=== PATIENT | female | born 1995 | race Caucasian/White ===

== ENCOUNTER → 2020-01-28 | Outpatient (REF) | payer OTHER, MEDICAID ==
[2020-01-28 12:39] LABS: BASO # 0.1 10^3/uL (0.0-0.2); BASO % 1.1 % (0.0-1.0); EOS # 0.1 10^3/uL (0.0-0.5); EOS % 2.1 % (0.0-3.0); HEMATOCRIT 41.2 % (36.0-47.0); HEMOGLOBIN 13.2 g/dl (12.0-15.5); LYMPH # 1.9 10^3/uL (1.5-5.0); LYMPH % 35.4 % (24.0-44.0); MEAN CORPUSCULAR HEMOGLOBIN 27.8 pg (27.0-33.0); MEAN CORPUSCULAR VOLUME 86.9 fl (80.0-96.0); MONO # 0.5 10^3/uL (0.0-0.8); MONO % 8.6 % (0.0-5.0); NEUTROPHILS # 2.8 10^3/uL (1.5-8.5); NEUTROPHILS % 52.6 % (36.0-66.0); PLATELET COUNT, AUTOMATED 290 10^3/uL (150-450); RED BLOOD COUNT 4.74 10^6/uL (4.00-5.40); WHITE BLOOD COUNT 5.3 10^3/uL (4.0-10.0)
[2020-01-28 13:24] LABS: ERYTHROCYTE SEDIMENTATION RATE 22 mm/hr (0-20)
[2020-01-29 13:07] LABS: IgG P18 AB Absent (.); IgG P23 AB Absent (.); IgG P28 AB Absent (.); IgG P30 AB Absent (.); IgG P39 AB Absent (.); IgG P41 AB Present (.); IgG P45 AB Absent (.); IgG P66 AB Absent (.); IgG P93 AB Absent (.); IgM P23 AB Absent (.); IgM P39 AB Absent (.); IgM P41 AB Absent (.); LYME IgG WB INTERPRETATION Negative (.); LYME IgM WB INTERPRETATION Negative (.)
== END ==
LOC: M SFHCRHEU 09:16
PROVIDERS: ATTEND Internal Medicine
DX: R76.8 Other specified abnormal immunological findings in serum (principal); R70.0 Elevated erythrocyte sedimentation rate

== ENCOUNTER 2021-04-16 22:03 | Emergency (ER) | payer OTHER, MEDICAID ==
[~2021-04-16] VITALS: Ht 162.6 cm; Wt 77.3 kg
[2021-04-17] MEDS ORDERED: KETOROLAC 60MG 2ML VIAL IM ONE
[2021-04-17 00:21] LABS: RSV AMPLIFICATION NEGATIVE (NEGATIVE)
[2021-04-17] MEDS ORDERED: KETOROLAC TROMETHAMINE 10 MG TAB PO ONE (00:50)
--- NOTE | 2021-04-17 00:55 | REPVR ---
PROCEDURE INFORMATION: Exam: XR Chest Exam date and time: 04/17/2021 12:40 AM Age: 25 years old Clinical indication: Shortness of breath; Additional info: SOB TECHNIQUE: Imaging protocol: XR of the chest. Views: 2 views. COMPARISON: No relevant prior studies available. FINDINGS: Lungs: Unremarkable. No consolidation. Pleural spaces: Unremarkable. No pleural effusion. No pneumothorax. Heart/Mediastinum: Unremarkable. No cardiomegaly. Bones/joints: Unremarkable. IMPRESSION: Negative chest. Electronically signed by: Garett Petty On 04/17/2021 00:55:23 AM
[2021-04-17 00:56] VITALS: BP 141/80
== END 2021-04-17 02:54 | disposition home or self-care (01) ==
LOC: M ED 22:03
DX: M54.6 Pain in thoracic spine (principal); R10.9 Unspecified abdominal pain; B34.8 Other viral infections of unspecified site

== ENCOUNTER → 2023-01-31 | Outpatient (CLI) | payer OTHER, MEDICAID | LOC: M WUC 11:29 | PROVIDERS: ATTEND Physician Assistant | DX: J32.9 Chronic sinusitis, unspecified (principal) ==

== ENCOUNTER 2023-02-02 12:53 | Emergency (ER) | payer MEDICAID, OTHER ==
[~2023-02-02] VITALS: Ht 162.6 cm; Wt 80.9 kg
[2023-02-02] MEDS ORDERED: AMOX875T2 (13:09)
[2023-02-02] MEDS ORDERED: NS 1,000 ML IV ONE (13:55)
[2023-02-02 14:09] LABS: BASO # 0.1 10^3/uL (0.0-0.2); BASO % 0.7 % (0.0-1.0); EOS # 0.1 10^3/uL (0.0-0.5); HEMOGLOBIN 14.3 g/dl (12.0-15.5); LYMPH # 2.2 10^3/uL (1.5-5.0); LYMPH % 24.9 % (24.0-44.0); MEAN CORPUSCULAR HEMOGLOBIN 28.1 pg (27.0-33.0); MEAN CORPUSCULAR HGB CONC 33.3 g/dl (32.0-36.5); MEAN CORPUSCULAR VOLUME 84.6 fl (80.0-96.0); MONO # 0.5 10^3/uL (0.0-0.8); MONO % 5.5 % (2.0-8.0); NEUTROPHILS % 67.7 % (36.0-66.0); PLATELET COUNT, AUTOMATED 326 10^3/uL (150-450); RED BLOOD COUNT 5.08 10^6/uL (4.00-5.40); WHITE BLOOD COUNT 8.8 10^3/uL (4.0-10.0)
[2023-02-02 16:32] VITALS: BP 133/84; TEMP 98.9; O2SAT 96
== END 2023-02-02 16:33 | disposition home or self-care (01) ==
LOC: M ED 12:53
DX: R55 Syncope and collapse (principal); J01.90 Acute sinusitis, unspecified; R09.82 Postnasal drip

== ENCOUNTER 2023-02-07 18:37 | Emergency (ER) | payer OTHER ==
[~2023-02-07] VITALS: Ht 162.6 cm; Wt 80.5 kg
[~2023-02-07 18:37] MED LIST: AMOX875T2
[2023-02-07 18:38] VITALS: TEMP 97.8
[2023-02-07] MEDS ORDERED: LORazepam 2 MG/ML 1ML VIAL IV STA (20:47)
[2023-02-07] MEDS ORDERED: NS 1,000 ML IV ONE (20:50)
[2023-02-07] MEDS ORDERED: MECLIZINE 25 MG TABLET PO ONE (20:50)
[2023-02-07 21:19] LABS: BASO # 0.1 10^3/uL (0.0-0.2); BASO % 0.5 % (0.0-1.0); EOS # 0.1 10^3/uL (0.0-0.5); EOS % 0.5 % (0.0-3.0); HEMATOCRIT 43.7 % (36.0-47.0); HEMOGLOBIN 14.4 g/dl (12.0-15.5); LYMPH # 2.7 10^3/uL (1.5-5.0); LYMPH % 25.8 % (24.0-44.0); MEAN CORPUSCULAR HEMOGLOBIN 27.9 pg (27.0-33.0); MEAN CORPUSCULAR VOLUME 84.5 fl (80.0-96.0); MONO # 0.6 10^3/uL (0.0-0.8); NEUTROPHILS # 7.1 10^3/uL (1.5-8.5); PLATELET COUNT, AUTOMATED 338 10^3/uL (150-450); RED BLOOD COUNT 5.17 10^6/uL (4.00-5.40); WHITE BLOOD COUNT 10.6 10^3/uL (4.0-10.0)
[2023-02-07] MEDS ORDERED: CLAR1TAB13 PO (21:31)
[2023-02-07 21:50] LABS: BLOOD UREA NITROGEN 8 MG/DL (9-23); CALCIUM LEVEL 9.6 MG/DL (8.5-10.1); CARBON DIOXIDE LEVEL 25 MMOL/L (20-31); CHLORIDE LEVEL 107 MMOL/L (98-107); CREATININE FOR GFR 0.58 MG/DL (0.55-1.30); GLOMERULAR FILTRATION RATE > 60.0 (>60); GLUCOSE, FASTING 92 MG/DL (60-100); POTASSIUM SERUM 3.9 MMOL/L (3.5-5.1); SODIUM LEVEL 142 MMOL/L (136-145)
[2023-02-07 21:52] VITALS: BP 125/83; O2SAT 99
[2023-02-07] MEDS ORDERED: MECL-209 PO (22:45)
[2023-02-07] MEDS ORDERED: FLON1SPR NARES (22:45)
== END 2023-02-07 23:01 | disposition home or self-care (01) ==
LOC: M ED 18:37
DX: R42 Dizziness and giddiness (principal); R20.2 Paresthesia of skin
CPT/HCPCS: 80048; 85025; 87486; 87581; 87633; 87798; 96360; 96374; 99284; J2060

== ENCOUNTER → 2023-08-01 | Outpatient (CLI) | payer OTHER ==
[~2023-08-01] MED LIST changes: +CLAR1TAB13 PO; +FLON1SPR NARES; +MECL-209 PO
[2023-08-01 19:49] LABS: BASO # 0.1 10^3/uL (0.0-0.2); BASO % 0.8 % (0.0-1.0); EOS # 0.1 10^3/uL (0.0-0.5); EOS % 1.4 % (0.0-3.0); LYMPH # 2.6 10^3/uL (1.5-5.0); LYMPH % 34.1 % (24.0-44.0); MEAN CORPUSCULAR HGB CONC 32.5 g/dl (32.0-36.5); MEAN CORPUSCULAR VOLUME 86.2 fl (80.0-96.0); MONO # 0.5 10^3/uL (0.0-0.8); MONO % 6.2 % (2.0-8.0); NEUTROPHILS # 4.5 10^3/uL (1.5-8.5); NEUTROPHILS % 57.4 % (36.0-66.0); PLATELET COUNT, AUTOMATED 267 10^3/uL (150-450); RED BLOOD COUNT 4.64 10^6/uL (4.00-5.40)
[2023-08-01 19:55] LABS: C REACTIVE PROTEIN QUANTITATIV < 0.40 MG/DL (<1.0)
[2023-08-01 19:56] LABS: ALBUMIN 3.8 G/DL (3.2-5.2); ALKALINE PHOSPHATASE 67 U/L (46-116); ALT/SGPT 11 U/L (7.0-40); AST/SGOT 9 U/L (<34); BILIRUBIN,TOTAL 0.3 MG/DL (0.3-1.2); BLOOD UREA NITROGEN 15 MG/DL (9-23); CALCIUM LEVEL 8.8 MG/DL (8.5-10.1); CARBON DIOXIDE LEVEL 26 MMOL/L (20-31); CHLORIDE LEVEL 109 MMOL/L (98-107); CREATININE FOR GFR 0.61 MG/DL (0.55-1.30); GLOMERULAR FILTRATION RATE > 60.0 (>60); GLUCOSE, FASTING 104 MG/DL (60-100); POTASSIUM SERUM 3.8 MMOL/L (3.5-5.1); SODIUM LEVEL 142 MMOL/L (136-145); TOTAL PROTEIN 7.2 G/DL (5.7-8.2)
[2023-08-01 20:08] LABS: CPK CREATINE PHOSPHOKINASE 76 U/L (34-145)
[2023-08-02 09:10] LABS: WHITE BLOOD COUNT 7.8 10^3/uL (4.0-10.0)
== END ==
LOC: M WUC 15:27
PROVIDERS: ATTEND Internal Medicine
DX: M79.606 Pain in leg, unspecified (principal)

== ENCOUNTER 2023-11-04 14:35 | Emergency (ER) | payer OTHER ==
[~2023-11-04] VITALS: Ht 162.6 cm; Wt 82.9 kg
[2023-11-04] MEDS ORDERED: ZYRT10TA12 PO (14:46)
[2023-11-04] MEDS ORDERED: diazePAM 10MG/2ML SYRINGE IM ONE (17:55)
[2023-11-04] MEDS: diazePAM 10MG/2ML SYRINGE IV ONE (18:14)
[2023-11-04] MEDS: MECLIZINE 25 MG TABLET PO ONE (18:14)
[2023-11-04] MEDS: NS 1,000 ML IV ONE (18:14)
[2023-11-04] MEDS ORDERED: MECL-209 PO (19:05)
[2023-11-04 19:20] VITALS: BP 143/85; TEMP 98.1; O2SAT 98
== END 2023-11-04 19:28 | disposition home or self-care (01) ==
LOC: M ED 14:35
DX: R42 Dizziness and giddiness (principal); F12.10 Cannabis abuse, uncomplicated; F10.10 Alcohol abuse, uncomplicated; Z79.899 Other long term (current) drug therapy
CPT/HCPCS: 96361; 96374; 99284; J3360

== ENCOUNTER → 2023-11-13 | Outpatient (CLI) | payer OTHER ==
[~2023-11-13] MED LIST changes: +ZYRT10TA12 PO
[2023-11-13 14:01] LABS: HEMOGLOBIN 13.5 g/dl (12.0-15.5); MEAN CORPUSCULAR HEMOGLOBIN 28.2 pg (27.0-33.0); MEAN CORPUSCULAR HGB CONC 32.9 g/dl (32.0-36.5); MEAN CORPUSCULAR VOLUME 85.8 fl (80.0-96.0); PLATELET COUNT, AUTOMATED 281 10^3/uL (150-450); RED BLOOD COUNT 4.78 10^6/uL (4.00-5.40)
[2023-11-13 14:12] LABS: HEMOGLOBIN A1c 5.1 % (4.0-6.0)
[2023-11-13 14:32] LABS: ALKALINE PHOSPHATASE 72 U/L (46-116); ALT/SGPT 15 U/L (7.0-40); AST/SGOT 12 U/L (<34); BILIRUBIN,TOTAL 0.5 MG/DL (0.3-1.2); BLOOD UREA NITROGEN 12 MG/DL (9-23); CALCIUM LEVEL 9.3 MG/DL (8.5-10.1); CARBON DIOXIDE LEVEL 25 MMOL/L (20-31); CHLORIDE LEVEL 107 MMOL/L (98-107); CREATININE FOR GFR 0.72 MG/DL (0.55-1.30); GLOMERULAR FILTRATION RATE > 60.0 (>60); GLUCOSE, FASTING 73 MG/DL (60-100); SODIUM LEVEL 140 MMOL/L (136-145); TOTAL PROTEIN 7.3 G/DL (5.7-8.2)
[2023-11-14 06:36] LABS: WHITE BLOOD COUNT 6.6 10^3/uL (4.0-10.0)
== END ==
LOC: M WUC 10:57
PROVIDERS: ATTEND Physician Assistant
DX: R73.01 Impaired fasting glucose (principal); E66.9 Obesity, unspecified

== ENCOUNTER 2023-12-13 09:17 | Emergency (ER) | payer OTHER ==
[~2023-12-13] VITALS: Ht 162.6 cm; Wt 80.3 kg
[2023-12-13 09:19] VITALS: BP 133/91; TEMP 97.5; O2SAT 98
[2023-12-13] MEDS ORDERED: AMOX875T2 PO (10:06)
[2023-12-13] MEDS: AUGMENTIN 875 MG TAB PO ONE (10:10)
== END 2023-12-13 10:21 | disposition home or self-care (01) ==
LOC: M ED 09:17
DX: H65.01 Acute serous otitis media, right ear (principal)

== ENCOUNTER → 2024-02-15 | Outpatient (CLI) | payer OTHER ==
[~2024-02-15] MED LIST changes: +AMOX875T2 PO; +PROHANCE 279.3MG/ML 15ML VIAL As Ordered ONE; +PROHANCE 279.3MG/ML 5ML VIAL As Ordered ONE
== END ==
LOC: M RAD 06:31
PROVIDERS: ATTEND Otolaryngology
DX: R42 Dizziness and giddiness (principal)

== ENCOUNTER 2024-04-30 07:58 | Emergency (ER) | payer OTHER ==
[~2024-04-30] VITALS: Ht 162.6 cm; Wt 85.2 kg
[~2024-04-30 07:58] MED LIST changes: -PROHANCE 279.3MG/ML 15ML VIAL As Ordered ONE; -PROHANCE 279.3MG/ML 5ML VIAL As Ordered ONE
[2024-04-30] MEDS: LIDOCAINE 5% (LIDODERM) PATCH TD ONE (10:30)
[2024-04-30] MEDS: KETOROLAC 60MG 2ML VIAL IM ONE (10:30)
[2024-04-30] MEDS ORDERED: METH-1164 PO (11:20)
[2024-04-30] MEDS ORDERED: NAPR-837 PO (11:20)
[2024-04-30] MEDS ORDERED: LIDO5DIS41 TD (11:20)
[2024-04-30 11:27] VITALS: BP 136/81; TEMP 97.5; O2SAT 100
== END 2024-04-30 11:33 | disposition home or self-care (01) ==
LOC: M ED 07:58
DX: M62.838 Other muscle spasm (principal); Z79.899 Other long term (current) drug therapy
CPT/HCPCS: 96372; 99283; J1885

== ENCOUNTER → 2024-06-05 | Outpatient (CLI) | payer OTHER ==
[~2024-06-05] MED LIST changes: +LIDO5DIS41 TD; +METH-1164 PO; +NAPR-837 PO
[2024-06-05 18:44] LABS: C REACTIVE PROTEIN QUANTITATIV 0.61 MG/DL (<1.0)
[2024-06-05 18:46] LABS: RHEUMATOID FACTOR QUANT < 3.5 IU/ML (<14)
== END ==
LOC: M WUC 10:27
PROVIDERS: ATTEND Physician Assistant
DX: M13.0 Polyarthritis, unspecified (principal); M79.12 Myalgia of auxiliary muscles, head and neck

== ENCOUNTER 2024-07-05 18:36 | Emergency (ER) | payer OTHER ==
[~2024-07-05] VITALS: Ht 162.6 cm; Wt 83.4 kg
[2024-07-05 18:40] VITALS: BP 137/89; TEMP 97.3; O2SAT 100
[2024-07-05 19:23] LABS: BASO % 0.5 % (0.0-1.0); EOS # 0.1 10^3/uL (0.0-0.5); EOS % 1.4 % (0.0-3.0); HEMATOCRIT 42.1 % (36.0-47.0); HEMOGLOBIN 13.8 g/dl (12.0-15.5); LYMPH # 1.8 10^3/uL (1.5-5.0); LYMPH % 28.5 % (24.0-44.0); MEAN CORPUSCULAR HGB CONC 32.8 g/dl (32.0-36.5); MEAN CORPUSCULAR VOLUME 85.6 fl (80.0-96.0); MONO # 0.7 10^3/uL (0.0-0.8); MONO % 11.2 % (2.0-8.0); NEUTROPHILS # 3.7 10^3/uL (1.5-8.5); NEUTROPHILS % 58.1 % (36.0-66.0); PLATELET COUNT, AUTOMATED 276 10^3/uL (150-450); RED BLOOD COUNT 4.92 10^6/uL (4.00-5.40); WHITE BLOOD COUNT 6.3 10^3/uL (4.0-10.0)
[2024-07-05 19:29] LABS: ERYTHROCYTE SEDIMENTATION RATE 48 mm/hr (0-20)
[2024-07-05 19:40] LABS: HCG, SERUM QUALITATIVE NEGATIVE (NEGATIVE)
[2024-07-05 19:41] LABS: BLOOD UREA NITROGEN 9 MG/DL (9-23); CALCIUM LEVEL 9.5 MG/DL (8.5-10.1); CARBON DIOXIDE LEVEL 24 MMOL/L (20-31); CHLORIDE LEVEL 107 MMOL/L (98-107); CREATININE FOR GFR 0.67 MG/DL (0.55-1.30); GLOMERULAR FILTRATION RATE > 60.0 (>60); GLUCOSE, FASTING 92 MG/DL (60-100); POTASSIUM SERUM 4.1 MMOL/L (3.5-5.1); SODIUM LEVEL 145 MMOL/L (136-145)
== END 2024-07-05 21:14 | disposition left against medical advice (07) ==
LOC: M ED 18:36
DX: Z53.21 Procedure and treatment not carried out due to patient leaving prior to being seen by health care provider (principal)

== ENCOUNTER → 2024-11-07 | Outpatient (CLI) | payer OTHER ==
[~2024-11-07] MED LIST changes: +LIDO1ADH93 TD; -LIDO5DIS41 TD
== END ==
LOC: M WUC 11:34
PROVIDERS: ATTEND Physician Assistant
DX: M25.532 Pain in left wrist (principal)

== ENCOUNTER 2024-11-13 04:27 | Emergency (ER) | payer OTHER ==
[~2024-11-13] VITALS: Ht 162.6 cm; Wt 86.8 kg
[2024-11-13 08:30] VITALS: BP 114/69; O2SAT 96
[2024-11-13 08:34] VITALS: TEMP 97.8
== END 2024-11-13 08:39 | disposition home or self-care (01) ==
LOC: M ED 04:27
DX: R05.9 Cough, unspecified (principal); J06.9 Acute upper respiratory infection, unspecified; F41.9 Anxiety disorder, unspecified; Z79.899 Other long term (current) drug therapy

== ENCOUNTER → 2025-01-13 | Outpatient (REF) | payer OTHER ==
[2025-01-13 19:06] LABS: C REACTIVE PROTEIN QUANTITATIV 0.7 MG/DL (<1.0); CPK CREATINE PHOSPHOKINASE 69.0 U/L (34-145)
[2025-01-13 19:07] LABS: MAGNESIUM LEVEL 2.1 MG/DL (1.8-2.4); PHOSPHORUS LEVEL 4.1 MG/DL (2.5-4.9)
[2025-01-13 19:10] LABS: TOTAL 25(OH) VITAMIN D 26.0 NG/ML (20.0-100.0)
[2025-01-13 19:11] LABS: VITAMIN B12 LEVEL 590.0 PG/ML (211-911)
== END ==
LOC: M SFHCRHEU 14:43
PROVIDERS: ATTEND Internal Medicine
DX: R70.0 Elevated erythrocyte sedimentation rate (principal); R79.82 Elevated C-reactive protein (CRP); M79.10 Myalgia, unspecified site